=== PATIENT | female | born 2005 | race Caucasian/White ===

== ENCOUNTER 2024-04-26 08:13 | Observation (INO) ==
--- NOTE | 2024-04-26 08:35 | Emergency Department Note ---
History of Present Illness General Chief complaint: Syncope Stated complaint: SYNCOPE, FALL Time Seen by Provider: 04/26/24 08:21 History of Present Illness This is a 19-year-old female who presents to the emergency department via private vehicle with complaints of "syncope, fall". Patient here today with boyfriend. Both patient and boyfriend provide history. Patient notes that she had a sore throat yesterday for much of the day. At evening time yesterday before bed she did take some NyQuil. She then was able to fall asleep. She then woke back up around 5 AM and felt unwell and perhaps thought she had a fever. She then took NyQuil again which is about 6 hours after the first dose. She then was able to fall asleep for little bit and then had to get up to use the bathroom and asked when she notes that she began feeling dizzy and lightheaded. The patient then notes that as she was ambulating and feeling dizzy/lightheaded she then had a syncopal event. This was witnessed by boyfriend. He notes that she did fall to the ground and struck a few pieces of furniture on the way down but no large strikes to the head. Boyfriend then notes he went to her side and made sure that she did not stand back up. She then had 2 more syncopal episodes. During that time she was out for about 15 to 20 seconds. He notes that there was a few jerking movements of the extremities but no full seizure activity. Patient denies biting the tongue or urinary incontinence. The patient notes that she does feel a little out of it at the present time and anxious but overall feels well. Patient denies any chest pain or shortness of breath. No headache. No nausea or vomiting. Home Medications Medication Instructions Recorded Confirmed Type amitriptyline 12.5 mg PO .EVERY COUPLE NIGHTS 04/26/24 04/26/24 History ibuprofen 2 tabs PO .Q6-8H PRN Pain 04/26/24 04/26/24 History Allergies Allergy/AdvReac Type Severity Reaction Status Date / Time Penicillins Allergy Hives Verified 04/26/24 08:21 walnut Allergy Hives Verified 04/26/24 08:21 Past Med/Surg History Problem List (Updated 04/26/24 @ 12:19 by Ricardo Jackson MD, [facility]) Anxiety Migraine Sinus pause (Acute) Syncope and collapse (Acute) Syncope, cardiogenic Social History Smoking Status: Never smoker Hx Alcohol Use: Yes Hx Substance Use: No Preferred Language: Divehi Communication Ability: Effective [employer] Combination Required: No Beliefs That Will Affect Care: None Current Living Situation: Other Current Living Situation Comment: Dormatory Feels Safe at Home: Yes Assistive Devices: None Review of Systems A total of 10 systems reviewed and were otherwise negative Physical Exam Vital Signs Vital Signs - 24 hr 04/26/24 08:18 04/26/24 08:33 04/26/24 08:52 Temperature 36.4 C L Temperature Source Oral Pulse Rate - Lying Pulse Rate - Sitting Pulse Rate - Standing Pulse Rate 109 H 97 H Pulse Rate [Apical] Pulse Rate from SpO2 Sensor Pulse Rhythm Regular Pulse Strength Normal Respiratory Rate 18 Blood Pressure - Lying Blood Pressure - Sitting Blood Pressure- Standing Blood Pressure 103/68 Blood Pressure [Left Arm] Blood Pressure Mean 79 Blood Pressure Mean [Left Arm] Blood Pressure Position Sitting Pulse Oximetry 98 Oxygen Delivery Method Room Air Room Air Sepsis Recent Fever Within 48 Hours No Sepsis New/Unexplained Change in Mental Status No Sepsis Action Taken by Nursing No Action Required 04/26/24 08:52 04/26/24 09:02 04/26/24 09:29 Temperature Temperature Source Pulse Rate - Lying 86 Pulse Rate - Sitting 104 H Pulse Rate - Standing 101 H Pulse Rate Pulse Rate [Apical] 78 Pulse Rate from SpO2 Sensor Pulse Rhythm Pulse Strength Respiratory Rate 14 Blood Pressure - Lying 100/58 L Blood Pressure - Sitting 109/72 Blood Pressure- Standing 79/61 L Blood Pressure Blood Pressure [Left Arm] 98/64 L Blood Pressure Mean Blood Pressure Mean [Left Arm] 75 Blood Pressure Position Pulse Oximetry 98 Oxygen Delivery Method Room Air Room Air Sepsis Recent Fever Within 48 Hours Sepsis New/Unexplained Change in Mental Status Sepsis Action Taken by Nursing 04/26/24 09:31 04/26/24 09:37 04/26/24 09:42 Temperature Temperature Source Pulse Rate - Lying Pulse Rate - Sitting Pulse Rate - Standing Pulse Rate 0 L 78 Pulse Rate [Apical] 78 Pulse Rate from SpO2 Sensor Pulse Rhythm Pulse Strength Respiratory Rate 14 Blood Pressure - Lying Blood Pressure - Sitting Blood Pressure- Standing Blood Pressure Blood Pressure [Left Arm] 106/67 Blood Pressure Mean Blood Pressure Mean [Left Arm] 80 Blood Pressure Position Pulse Oximetry 98 Oxygen Delivery Method Room Air Sepsis Recent Fever Within 48 Hours Sepsis New/Unexplained Change in Mental Status Sepsis Action Taken by Nursing 04/26/24 09:48 04/26/24 10:00 04/26/24 10:03 Temperature Temperature Source Pulse Rate - Lying Pulse Rate - Sitting Pulse Rate - Standing Pulse Rate 78 88 Pulse Rate [Apical] Pulse Rate from SpO2 Sensor 80 88 Pulse Rhythm Pulse Strength Respiratory Rate 19 15 Blood Pressure - Lying Blood Pressure - Sitting Blood Pressure- Standing Blood Pressure 119/72 Blood Pressure [Left Arm] Blood Pressure Mean 82 Blood Pressure Mean [Left Arm] Blood Pressure Position Pulse Oximetry 99 99 Oxygen Delivery Method Room Air Room Air Sepsis Recent Fever Within 48 Hours Sepsis New/Unexplained Change in Mental Status Sepsis Action Taken by Nursing 04/26/24 10:21 04/26/24 10:30 Temperature Temperature Source Pulse Rate - Lying Pulse Rate - Sitting Pulse Rate - Standing Pulse Rate 103 H Pulse Rate [Apical] Pulse Rate from SpO2 Sensor 102 H Pulse Rhythm Pulse Strength Respiratory Rate 13 Blood Pressure - Lying Blood Pressure - Sitting Blood Pressure- Standing Blood Pressure 120/66 Blood Pressure [Left Arm] Blood Pressure Mean 81 Blood Pressure Mean [Left Arm] Blood Pressure Position Pulse Oximetry 99 Oxygen Delivery Method Room Air Sepsis Recent Fever Within 48 Hours Sepsis New/Unexplained Change in Mental Status Sepsis Action Taken by Nursing VITAL SIGNS - Vital signs and nursing notes were reviewed. Stable and afebrile. GENERAL - 19-year-old female appearing her stated age. Communicates well with provider and answers questions appropriately. SKIN - Gross examination of the entire body surface demonstrates no lacerations to the body surface. HEAD - Normocephalic, Atraumatic. No Richards's Sign or Raccoon's Eyes. No depressed skull fractures palpable. EYES - PERRL with EOMI bilaterally. Without subconjunctival hemorrhage. Palpebral conjunctiva pink and moist with no injection. EARS - No deformities of external structures noted on gross examination bilaterally. No hemotympanum present. No tympanic perforation noted. Handle of malleus, umbo, cone of light, pars tensa/flaccid all easily visualized. NOSE - Midline and without cyanosis. No epistaxis or clear watery discharge noted. Septum midline without deviation. No septal hematoma noted. No overlying ecchymosis noted. MOUTH/OROPHARYNX - Without perioral cyanosis. Tongue midline with equal elevation of palate bilaterally. No blood noted in the oropharynx. No tonsillar hypertrophy, erythema, or exudates noted. No dental fractures noted. NECK - No tenderness to palpation over the cervical spinous processes. No cervical paraspinal muscle tenderness noted. LUNGS - Chest wall symmetric without accessory muscle use, intercostals retractions, or central cyanosis. Normal vesicular breath sounds CTA B/L. No wheezes, rales, or rhonchi appreciated. CARDIAC - RRR with S1/S2. No murmur, rubs, or gallops appreciated. ABDOMEN - Abdominal contour normal and without pulsations or visible masses. BS normoactive all four quadrants. No rebound tenderness or guarding noted. Negative Krunal's or Brown Cole's Signs. No tenderness, palpable masses, hepatosplenomegaly, or ascites noted. EXTREMITIES - No gross deformities noted of the extremities. +5/5 strength noted in UE/LE bilaterally. NEUROLOGIC - Cranial nerves II through XII grossly intact. PSYCH -alert, oriented and pleasant on exam. Course Administered Medications Discontinued Medications Acetaminophen (Acetaminophen 325 Mg Tab) 650 mg PO Q4H PRN PRN Reason: pain/fever Stop: 05/26/24 23:43 Last Admin: 04/26/24 23:54 Dose: 650 mg Documented By: MARTIN Atropine Sulfate (Atropine Sulfate 0.1 Mg/Ml 10ml Syr) Confirm Administered Dose 1 mg IV .STK-MED ONE Stop: 04/27/24 03:38 Last Admin: 04/27/24 08:59 Dose: Not Given Documented By: MASSIMO Sodium Chloride (Nss) 1,000 mls @ 500 mls/hr IV .Q2H [facility] Stop: 04/26/24 11:36 Last Infusion: 04/26/24 11:45 Dose: Infused Documented By: Admin: 04/26/24 09:39 Dose: 500 mls/hr Documented By: BING Magnesium Sulfate/Dextrose (Magnesium Sulfate / D5w) 1 gm in 100 mls @ 50 mls/hr IV Q2H [facility] Stop: 04/26/24 15:14 Last Infusion: 04/26/24 17:13 Dose: Infused Documented By: Admin: 04/26/24 13:40 Dose: 50 mls/hr Documented By: Infusion: 04/26/24 13:19 Dose: Infused Documented By: Admin: 04/26/24 11:19 Dose: 50 mls/hr Documented By: BEULAH Potassium Chloride (K Royce / Wtr) 10 meq in 100 mls @ 100 mls/hr IV Q1H [facility] Stop: 04/26/24 13:14 Last Infusion: 04/26/24 13:40 Dose: Infused Documented By: Admin: 04/26/24 12:22 Dose: 100 mls/hr Documented By: Infusion: 04/26/24 12:19 Dose: Infused Documented By: Admin: 04/26/24 11:19 Dose: 100 mls/hr Documented By: BEULAH Miscellaneous (Icu Protocol For Hyperglycemia) 1 each N/A ACHS [facility] Stop: 04/28/24 11:54 Last Admin: 04/27/24 08:59 Dose: Not Given Documented By: Admin: 04/26/24 20:22 Dose: 1 each Documented By: Admin: 04/26/24 17:51 Dose: Not Given Documented By: Admin: 04/26/24 13:12 Dose: Not Given Documented By: COLEEN Potassium Chloride (Potassium Chloride Crtab 20 Meq Tabcr) 40 meq PO NOW STA Stop: 04/26/24 11:01 Last Admin: 04/26/24 11:13 Dose: Not Given Documented By: BEULAH Medical Decision Making Laboratory Data 04/27/24 04:02 04/27/24 04:02 Lab Results 04/26/24 04/26/24 04/26/24 Range/Units 08:37 08:40 08:56 WBC 15.05 H (4.8-10.8) K/ul RBC 4.60 (4.20-5.40) M/uL Hgb 13.8 (12.0-16.0) g/dl Hct 40.4 (37.0-47.0) % MCV 87.8 (80.0-100.0) fL MCH 30.0 (25.0-34.0) pg MCHC 34.2 (32.0-36.0) g/dL RDW Std Deviation 38.8 (36.4-46.3) fL RDW Coeff of Niko 12.1 (11.5-14.5) % Plt Count 290 (130-400) K/uL MPV 9.0 L (9.4-12.4) fL Immature Gran % (Auto) 0.3 % Neut % (Auto) 83.9 % Lymph % (Auto) 11.3 % Lares % (Auto) 4.1 % Eos % (Auto) 0.2 % Baso % (Auto) 0.2 % Neut # (Auto) 12.63 H (1.40-6.50) K/uL Lymph # (Auto) 1.70 (1.20-3.40) K/uL Lares # (Auto) 0.61 H (0.11-0.59) K/uL Eos # (Auto) 0.03 (0.00-0.50) K/uL Baso # (Auto) 0.03 (0.00-0.20) K/uL Immature Gran # (Auto) 0.05 (0.01-0.20) K/uL Sodium 141 (136-145) mmol/L Potassium 3.7 (3.5-5.1) mmol/L Chloride 106 (98-107) mmol/L Carbon Dioxide 25 (21-32) mmol/L Anion Gap 10 (3-11) BUN 15 (6-23) mg/dl Creatinine 0.74 (0.6-1.2) mg/dl Est Cr Clr Drug Dosing Not Reportable eGFR 117.97 BUN/Creatinine Ratio 20.3 H (10-20) Glucose 117 H (70-99(Fasting)) mg/dl Calcium 9.2 (8.6-10.3) mg/dl Phosphorus 3.5 (2.5-4.9) mg/dl Magnesium 1.8 (1.7-2.4) mg/dl Total Bilirubin 0.9 (0.2-1.0) mg/dl AST 15 (13-39) U/L ALT 10 (7-52) U/L Alkaline Phosphatase 71 (34-104) U/L Troponin I High Sens 2.9 (0-14) pg/ml Total Protein 7.4 (6.0-8.3) gm/dl Albumin 4.4 (3.4-5.0) gm/dl Globulin 3.0 (2.5-4.0) gm/dl Albumin/Globulin Ratio 1.5 (0.9-2) TSH 1.594 (0.300-4.500) uIu/ml HCG, Qual Negative (Negative) Ethyl Alcohol mg/dL (<10.0) mg/dl Adenovirus (PCR) Not Detected (NotDetected) B. pertussis DNA (PCR) Not Detected (NotDetected) B.parapertussis DNA PCR Not Detected (NotDetected) Lyme Disease Screen Negative (Negative) C. pneumoniae DNA (PCR) Not Detected (NotDetected) Coronavirus OC43 (PCR) Not Detected (NotDetected) Coronavirus HKU1 (PCR) Not Detected (NotDetected) Coronavirus 229E (PCR) Not Detected (NotDetected) SARS-CoV-2 (PCR) Not Detected (NotDetected) Coronavirus NL63 (PCR) Not Detected (NotDetected) Monoscreen Negative (Negative) Human Metapneumovir PCR Not Detected (NotDetected) Influenza Type A (PCR) Not Detected (NotDetected) Influenza Type B (PCR) Not Detected (NotDetected) M. pneumoniae (PCR) Not Detected (NotDetected) Parainfluenza 1 (PCR) Not Detected (NotDetected) Parainfluenza 2 (PCR) Not Detected (NotDetected) Parainfluenza 3 (PCR) Not Detected (NotDetected) Parainfluenza 4 (PCR) Not Detected (NotDetected) RSV (PCR) Not Detected (NotDetected) Entero/Rhino (PCR) Not Detected (NotDetected) Group A Strep (PCR) NOT DETECTED (NotDetected) 04/26/24 Range/Units 10:37 WBC (4.8-10.8) K/ul RBC (4.20-5.40) M/uL Hgb (12.0-16.0) g/dl Hct (37.0-47.0) % MCV (80.0-100.0) fL MCH (25.0-34.0) pg MCHC (32.0-36.0) g/dL RDW Std Deviation (36.4-46.3) fL RDW Coeff of Niko (11.5-14.5) % Plt Count (130-400) K/uL MPV (9.4-12.4) fL Immature Gran % (Auto) % Neut % (Auto) % Lymph % (Auto) % Lares % (Auto) % Eos % (Auto) % Baso % (Auto) % Neut # (Auto) (1.40-6.50) K/uL Lymph # (Auto) (1.20-3.40) K/uL Lares # (Auto) (0.11-0.59) K/uL Eos # (Auto) (0.00-0.50) K/uL Baso # (Auto) (0.00-0.20) K/uL Immature Gran # (Auto) (0.01-0.20) K/uL Sodium (136-145) mmol/L Potassium (3.5-5.1) mmol/L Chloride (98-107) mmol/L Carbon Dioxide (21-32) mmol/L Anion Gap (3-11) BUN (6-23) mg/dl Creatinine (0.6-1.2) mg/dl Est Cr Clr Drug Dosing eGFR BUN/Creatinine Ratio (10-20) Glucose (70-99(Fasting)) mg/dl Calcium (8.6-10.3) mg/dl Phosphorus (2.5-4.9) mg/dl Magnesium (1.7-2.4) mg/dl Total Bilirubin (0.2-1.0) mg/dl AST (13-39) U/L ALT (7-52) U/L Alkaline Phosphatase (34-104) U/L Troponin I High Sens (0-14) pg/ml Total Protein (6.0-8.3) gm/dl Albumin (3.4-5.0) gm/dl Globulin (2.5-4.0) gm/dl Albumin/Globulin Ratio (0.9-2) TSH (0.300-4.500) uIu/ml HCG, Qual (Negative) Ethyl Alcohol mg/dL < 10.0 (<10.0) mg/dl Adenovirus (PCR) (NotDetected) B. pertussis DNA (PCR) (NotDetected) B.parapertussis DNA PCR (NotDetected) Lyme Disease Screen (Negative) C. pneumoniae DNA (PCR) (NotDetected) Coronavirus OC43 (PCR) (NotDetected) Coronavirus HKU1 (PCR) (NotDetected) Coronavirus 229E (PCR) (NotDetected) SARS-CoV-2 (PCR) (NotDetected) Coronavirus NL63 (PCR) (NotDetected) Monoscreen (Negative) Human Metapneumovir PCR (NotDetected) Influenza Type A (PCR) (NotDetected) Influenza Type B (PCR) (NotDetected) M. pneumoniae (PCR) (NotDetected) Parainfluenza 1 (PCR) (NotDetected) Parainfluenza 2 (PCR) (NotDetected) Parainfluenza 3 (PCR) (NotDetected) Parainfluenza 4 (PCR) (NotDetected) RSV (PCR) (NotDetected) Entero/Rhino (PCR) (NotDetected) Group A Strep (PCR) (NotDetected) Imaging Data Radiologist's Impression: Chest X-Ray 04/26/24 08:41 XR chest 1V portable HISTORY: 19 years-old Female syncope, sore throat acute chest and throat pain COMPARISON: None TECHNIQUE: AP view of the chest FINDINGS: Cardiac silhouette is normal. The lungs appear clear. No pneumothorax or pleural effusion. Bones appear normal. IMPRESSION: Normal exam. ACT 112: Negative or not required by law. The above report was generated using voice recognition software. It may contain grammatical, syntax or spelling errors. Electronically signed by: Tony Leonard M.D. 04/26/2024 8:57 AM MDM Narrative Patient was seen and evaluated as above in room A03. Review was performed of triage nursing notes and vital signs. Patient presents today for assessment of syncopal event x 3 in the setting of recent sore throat and feeling unwell. Patient well-appearing and nontoxic on assessment. IV access was established. No signs of head trauma clinically. Although head CT considered at this time will refrain pending clinical course. Chest x-ray was performed and per my interpretation was negative for acute process. I also reviewed the radiology report which is as above and normal. EKG was performed. This revealed normal sinus rhythm at a rate of [address]pm[address] elevation on this rhythm tracing. Labs were drawn. I did inquire about seizure activity with patient and boyfriend. Although the patient did have a few brief jerking movements while passed out, this seems more like myoclonic movements in the setting of syncope rather than true seizure. She did not bite the tongue. There was no urinary incontinence. No history of seizure. Labs reveal leukocytosis 15.05. No anemia. No emergent metabolic disturbance. Mild hyperglycemia 117. Troponin negative. TSH reveals euthyroid state. hCG negative. Bio fire panel negative. Strep testing negative. Monotest negative. Lyme testing negative. An EKG was performed on arrival here today and this revealed normal sinus rhythm at a rate of 87 bpm. QTc 445. QRS 88. No ST elevation. Orthostatic vital signs were then ordered. I was notified emergently during the orthostatic vital signs that upon standing the patient did have another episode of syncope. Review of the monitor strip does show a several second pause. This does correlate with the patient's syncopal event that occurred here. Repeat EKG was performed at that time and per my interpretation this reveals normal sinus rhythm with sinus arrhythmia at a rate of 67 bpm. QTc 433. QRS 92. No ST elevation. I do believe that further evaluation and management in the inpatient setting is warranted. Case discussed with the hospitalist service as well as cardiology, Dr. Middleton. Please refer to further documentation regarding her stay. Continuous cardiac monitoring and pulse oxygenation was ordered. Case was discussed with the attending physician. GCS: 15 In the evaluation and treatment of this patient the following differential diagnoses were entertained: Vasovagal syncope, dehydration, illness, PE, CVA, TIA, seizure, intracranial hemorrhage, electrolyte disturbance, among others Impression & Plan Syncope and collapse, Sinus pause Discharge Plan Visit Data Chief Complaint: Syncope Stated Complaint: SYNCOPE, FALL ED Provider: Jair Álvarez ED Midlevel Provider: Jameel Andrew Discharge Problem: Syncope and collapse, Sinus pause Patient Disposition: Admitted As Inpatient Condition: Good Discharge Instructions Interventions: ED Discharge Assessment Last Done: 04/26/24 11:38
[2024-04-26 08:56] LABS: Basophils # (auto) 0.03 K/uL (0.00-0.20); Basophils % (auto) 0.2 %; Eosinophils # (auto) 0.03 K/uL (0.00-0.50); Eosinophils % (auto) 0.2 %; Hematocrit (blood only) 40.4 % (37.0-47.0); Hemoglobin 13.8 g/dl (12.0-16.0); Immature Granulocytes # (auto) 0.05 K/uL (0.01-0.20); Immature Granulocytes % (auto) 0.3 %; Lymphocytes % (auto) 11.3 %; Mean Corpuscular Hgb Conc 34.2 g/dL (32.0-36.0); Mean Corpuscular Volume 87.8 fL (80.0-100.0); Monocytes # (auto) 0.61 K/uL (0.11-0.59); Monocytes % (auto) 4.1 %; Neutrophils # (auto) 12.63 K/uL (1.40-6.50); Neutrophils % (auto) 83.9 %; Platelet Count 290 K/uL (130-400); RDW Coefficient of Variation 12.1 % (11.5-14.5); RDW Standard Deviation 38.8 fL (36.4-46.3); White Blood Count 15.05 K/ul (4.8-10.8)
--- NOTE | 2024-04-26 08:58 | XRay Report ---
XR chest 1V portable HISTORY: 19 years-old Female syncope, sore throat acute chest and throat pain COMPARISON: None TECHNIQUE: AP view of the chest FINDINGS: Cardiac silhouette is normal. The lungs appear clear. No pneumothorax or pleural effusion. Bones appe ar normal. IMPRESSION: Normal exam. ACT 112: Negative or not required by law. The above report was generated using voice recognition software. It may contain grammatical, syntax o r spelling errors. Electronically signed by: Tony Leonard M.D. 04/26/2024 8:57 AM
[2024-04-26 09:13] LABS: Monotest Negative (Negative); Pregnancy Test, Serum Negative (Negative)
[2024-04-26 09:20] LABS: Alanine Aminotransferase 10 U/L (7-52); Albumin Globulin Ratio 1.5 (0.9-2); Albumin Level 4.4 gm/dl (3.4-5.0); Alkaline Phosphatase 71 U/L (34-104); Anion Gap 10 (3-11); Aspartate Aminotransferase 15 U/L (13-39); BUN Creatinine Ratio 20.3 (10-20); Bilirubin,Total 0.9 mg/dl (0.2-1.0); Blood Urea Nitrogen 15 mg/dl (6-23); Calcium 9.2 mg/dl (8.6-10.3); Carbon Dioxide 25 mmol/L (21-32); Chloride 106 mmol/L (98-107); Glucose 117 mg/dl (70-99(Fasting)); Magnesium 1.8 mg/dl (1.7-2.4); Potassium 3.7 mmol/L (3.5-5.1); Sodium 141 mmol/L (136-145); Total Protein 7.4 gm/dl (6.0-8.3)
[2024-04-26 09:27] LABS: Troponin I High Sensitivity 2.9 pg/ml (0-14)
[2024-04-26 09:36] LABS: Thyroid Stimulating Hormone 1.594 uIu/ml (0.300-4.500)
[2024-04-26] MEDS: SODIUM CHLORIDE 0.9% 1,000 ML IV SCH (09:39)
[2024-04-26 09:58] LABS: Adenovirus PCR Not Detected (NotDetected); Bordetella parapertussis PCR Not Detected (NotDetected); Bordetella pertussis PCR Not Detected (NotDetected); Chlamydia pneumoniae PCR Not Detected (NotDetected); Coronavirus 229E PCR Not Detected (NotDetected); Coronavirus CoV-2 (COVID19)PCR Not Detected (NotDetected); Coronavirus HKU1 PCR Not Detected (NotDetected); Coronavirus NL63 PCR Not Detected (NotDetected); Coronavirus OC43PCR Not Detected (NotDetected); Human Metapneumovirus PCR Not Detected (NotDetected); Influenza A PCR Not Detected (NotDetected); Influenza B PCR Not Detected (NotDetected); Mycoplasma pneumoniae PCR Not Detected (NotDetected); Parainfluenza Virus 1 PCR Not Detected (NotDetected); Parainfluenza Virus 2 PCR Not Detected (NotDetected); Parainfluenza Virus 3 PCR Not Detected (NotDetected); Parainfluenza Virus 4 PCR Not Detected (NotDetected); Respiratory Syncytial VirusPCR Not Detected (NotDetected); Rhinovirus/Enterovirus PCR Not Detected (NotDetected)
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
--- NOTE | 2024-04-26 10:58 | Critical Care Consultation ---
Date of Consultation April 26, 2024 Assessment & Plan (1) Syncope and collapse: (2) Sinus pause: (3) Migraine: (4) Anxiety: Plan -- Syncopal episodes with sinus pause Differential includes tachy-migel syndrome Continue with pacer pads Atropine at bedside. TSH within normal limit, Lyme disease negative, mono screen negative, group A strep negative 04/26/2024 Beta-hCG negative UDS negative for everything EKG 04/26/2024, 9:23 AM: Normal sinus rhythm, normal axis, incomplete RBBB, no ST-T wave changes appreciated, QTc 433 There are some T wave inversions in lead II which is likely lead misplacement --Leukocytosis Likely reactive Chest x-ray does not show any lung infiltrate UA showing trace leukocyte esterase --History of anxiety/migraine On amitriptyline --Prophylaxis VTE: IPC GI: None Lines: Peripheral Diet: Regular Plan: Potassium and magnesium being replaced. Will try to keep potassium greater than 4, magnesium greater than 2 and phosphorus greater than 3 Follow-up UDS Continue with telemonitoring Follow-up cardiology consult Bedrest for at least 4-6 hours. If no episodes then okay to get out of the bed to chair but only with nurse around Please note the above document was generated using voice recognition software. It may contain grammatical, syntax or spelling errors.Any formal questions or concerns about the content, text or information contained within the body of this dictation should be directly addressed to the provider for clarification. History of Present Illness History of Present Illness 19-year-old female comes to the ER because of multiple syncopal episodes Past medical history: Anxiety, migraine on amitriptyline 4.5-second pause documented in the ER At the time of examination in the ICU. Patient was not in any distress Her heart rate was in the low 100s. Systolic blood pressure 110 with MAP in the 75 She denied any chest pain, no dizziness, no nausea or vomiting She does have chronic blurry vision since she was a child. Whole day yesterday she ate a burger around noon followed by milkshake around 6 PM and lemonade prior to going to sleep around 9 PM. As per the patient she does this frequently. Did not feel that she was dehydrated. She woke up in the middle of the night to go to the washroom where she felt that she is about to pass out and she did pass out approximately 3 times Denies any need to strain while urinating. Denied any palpitations, no nausea prior to that. Did not hit her head. Had an episode of syncope when she was in the eighth grade once. Did not seek medical attention at that time She did complain of some sore throat which has been going on since yesterday. Denies any phlegm No nasal congestion No fever or chills No night sweats, no unintentional weight loss Her menstrual cycle is regular, she is at the end of her menstrual cycle right now. Denies any tick bites, no rashes that she is aware of. Social history: Lifetime non-smoker No history of asthma Allergies Allergy/AdvReac Type Severity Reaction Status Date / Time Penicillins Allergy Hives Verified 04/26/24 08:21 walnut Allergy Hives Verified 04/26/24 08:21 Home Medications Medication Instructions Recorded Confirmed Type NyQuil 1 dose PO DIRECTED PRN cold/flu 04/26/24 04/26/24 History amitriptyline 12.5 mg PO .EVERY COUPLE NIGHTS 04/26/24 04/26/24 History ibuprofen 2 tabs PO .Q6-8H PRN Pain 04/26/24 04/26/24 History Patient History Social History Smoking Status: Never smoker Hx Alcohol Use: Yes Hx Substance Use: No Preferred Language: Wolof [employer] Glass Blower Required: No Beliefs That Will Affect Care: None Current Living Situation: Other Current Living Situation Comment: Dormatory Feels Safe at Home: Yes Assistive Devices: Glasses Review of Systems 2 Review of Systems: All systems reviewed & are unremarkable except as noted in HPI & below Physical Exam 2 Physical Exam: Constitutional: No acute distress HEENT: EOMI, PERRLA Respiratory system: Good air entry bilaterally, no wheeze, no rhonchi, no crackles CVS: S1-S2 positive, no murmurs or gallops, tachycardia Abdomen: Soft, nontender, nondistended, positive bowel sounds x4 Extremities: +2 pulses bilaterally radialis/ dorsalis pedis, no cyanosis, no edema Neuro: Awake alert oriented x3 Psych: Normal mood and affect G/U: No [place] Skin: no rashes, warm and dry Lymphatic: no cervical or axillary lymphadenopathy Results & Data Results & Data Vital Signs (Past 12 Hours) Vital Signs Temp Pulse Pulse Resp BP BP Pulse Ox 04/26/24 10:30 120/66 04/26/24 10:21 103 H 13 99 04/26/24 10:03 88 15 99 04/26/24 10:00 119/72 04/26/24 09:48 78 19 99 04/26/24 09:42 78 04/26/24 09:37 78 14 106/67 98 04/26/24 09:31 0 L 04/26/24 09:02 78 14 98/64 L 98 04/26/24 08:52 04/26/24 08:52 04/26/24 08:33 97 H 04/26/24 08:18 36.4 C L 109 H 18 103/68 98 O2 Del Method 04/26/24 10:30 04/26/24 10:21 Room Air 04/26/24 10:03 Room Air 04/26/24 10:00 04/26/24 09:48 Room Air 04/26/24 09:42 04/26/24 09:37 Room Air 04/26/24 09:31 04/26/24 09:02 Room Air 04/26/24 08:52 Room Air 04/26/24 08:52 Room Air 04/26/24 08:33 04/26/24 08:18 Room Air Laboratory Results 04/26/24 08:40 04/26/24 08:40 [place] [address] IN/OBS CONSULT LVL 4,60M Patient Type New Diagnoses Syncope and collapse R55 Sinus pause I45.5 Migraine G43.909 Anxiety F41.9
[2024-04-26] MEDS: POTASSIUM CHLORIDE CRTAB 20 MEQ TABCR PO STA (11:13)
[2024-04-26] MEDS ORDERED: MAGNESIUM SULFATE / D5W 1 GM/100 ML BAG IV SCH (11:15)
[2024-04-26] MEDS: POTASSIUM CHLORIDE / WTR 10 MEQ/100 ML PLCT IV SCH (11:19)
[2024-04-26] MEDS: MAGNESIUM SULFATE / D5W 1 GM/100 ML BAG IV SCH (11:19)
--- NOTE | 2024-04-26 11:19 | XCELERA ---
[id number]
[2024-04-26 11:21] LABS: Phosphorus 3.5 mg/dl (2.5-4.9)
--- NOTE | 2024-04-26 11:31 | Cardiology Consultation ---
Date of Consultation April 26, 2024 Assessment & Plan (1) Syncope and collapse: -4 episodes of witnessed syncope today. -Review of the monitor strips suggest a vasovagal etiology (sinus tachycardia to sinus bradycardia to a 6-second pause). -Patient does not recall any premorbid symptoms but was aware of each impending event. -Her echocardiogram is normal. -Will ask Dr. Duarte to review her case tomorrow. History of Present Illness History of Present Illness Miss Leach is a 19-year-old female admitted earlier today after several episodes of syncope. This consultation was ordered to assist in her cardiac management. The patient was in her usual state of health until several days prior to presentation. She developed a mild cold and has been using NyQuil to sleep. Yesterday, in celebration of her 19st birthday, the patient had 1 alcoholic beverage just before the App[employer]. She went to bed at approximately 12 midnight. She awoke once during the night to use the bathroom without event. At approximately 8 AM, the patient got up to use the bathroom again and was walking with her boyfriend. She began to note significant dizziness and felt as if she was going to "pass out." She sat down on the portable refrigerator and then had a syncopal event witnessed by her boyfriend. She does not recall if she had premorbid nausea or diaphoresis. She awoke quickly and had no post morbid complaints. Approximately 2 minutes later, while lying on the floor, the patient said "it is going to happen again" and she had another witnessed episode of loss of consciousness. Approximately 2 minutes later, while seated on the floor against a wall, the patient again said "it is going to happen again." She was helped to the supine position by her boyfriend and experienced a third episode of syncope. The patient presented to the emergency room for an evaluation. While the nurse was performing orthostatics, the patient suffered a fourth episode of syncope. Review of the monitor strip notes that she was in a sinus tachycardia followed by an abrupt sinus bradycardia and then a 6-second pause. This corresponded with her syncopal event. She has only experienced 1 other episode of syncope in her lifetime. This occurred while she was in the eighth grade. She was seated at the kitchen table and began to note dizziness and felt that she was going to "pass out." She was carried to the couch by her father and apparently had a syncopal event. The patient has been healthy her entire lifetime. She has never experienced exertional chest pain or dyspnea. She further denies PND, orthopnea, palpitations, lower extremity edema, and claudication. Currently, the patient is resting comfortably in bed and without complaints. Her boyfriend is at the bedside. Past medical and surgical history 1. Migraine headaches Social history Isauro at [employer] studying [employer] from [place], [place] No tobacco 1 alcoholic beverage her entire lifetime Family history Mother is 50 and healthy Father is 49 with hypercholesterolemia Siblings are all alive and well Review of systems A 10 point review of systems was undertaken and negative except for that de scribed above. Allergies Allergy/AdvReac Type Severity Reaction Status Date / Time Penicillins Allergy Hives Verified 04/26/24 08:21 walnut Allergy Hives Verified 04/26/24 08:21 Home Medications Medication Instructions Recorded Confirmed Type NyQuil 1 dose PO DIRECTED PRN cold/flu 04/26/24 04/26/24 History amitriptyline 12.5 mg PO .EVERY COUPLE NIGHTS 04/26/24 04/26/24 History ibuprofen 2 tabs PO .Q6-8H PRN Pain 04/26/24 04/26/24 History Patient History Social History Smoking Status: Never smoker Feels Safe at Home: Yes Physical Exam Physical Exam: In general this is a well-developed well-nourished white female in no acute distress. HEENT exam is negative. Neck reveals normal carotid upstrokes without bruits. Jugular venous pressure is flat at 90. There is no thyromegaly. Cardiovascular exam reveals a regular rhythm with a normal S1 and a physiologically split S2. No S3, S4, or murmurs are noted. Lungs are clear without rales, rhonchi, or wheezes. Abdomen is soft without bruits. Extremities reveal intact radial artery and posterior tibial pulses bilaterally. There is no peripheral edema. Results & Data Vital Signs (Past 12 Hours) Vital Signs Temp Pulse Pulse Resp BP BP Pulse Ox 04/26/24 11:00 99 H 18 119/73 98 04/26/24 10:30 120/66 04/26/24 10:21 103 H 13 99 04/26/24 10:03 88 15 99 04/26/24 10:00 119/72 04/26/24 09:48 78 19 99 04/26/24 09:42 78 04/26/24 09:37 78 14 106/67 98 04/26/24 09:31 0 L 04/26/24 09:02 78 14 98/64 L 98 04/26/24 08:52 04/26/24 08:52 04/26/24 08:33 97 H 04/26/24 08:18 36.4 C L 109 H 18 103/68 98 O2 Del Method 04/26/24 11:00 Room Air 04/26/24 10:30 04/26/24 10:21 Room Air 04/26/24 10:03 Room Air 04/26/24 10:00 04/26/24 09:48 Room Air 04/26/24 09:42 04/26/24 09:37 Room Air 04/26/24 09:31 04/26/24 09:02 Room Air 04/26/24 08:52 Room Air 04/26/24 08:52 Room Air 04/26/24 08:33 04/26/24 08:18 Room Air Laboratory Results CBC, comprehensive metabolic profile, high-sensitivity troponin, and TSH are all normal. test is negative. Ethyl alcohol is undetectable. Lyme titers are negative. Bio fire is negative. Diagnostic Findings Echocardiogram notes normal left ventricular systolic function with an ejection fraction of 60 to 65%. There is no valvular pathology. EKG notes normal sinus rhythm and a right-sided conduction delay. telemetry monitor as described above. Chest x-ray is normal. PG Care Time/CCT Total # of Minutes Spent Total Time Spent with Patient: Total time spent is greater than 50% in coordination of care (as documented) at patient's floor/unit and/or counseling patient: Coding Level of Care Code 42461 IN/OBS CONSULT LVL 4,60M Diagnoses Syncope and collapse R55
[2024-04-26 12:01] LABS: Appearance Urine Clear (Clear); Bacteria Urine Automated 2+ (None Seen); Bilirubin Urine Negative (Negative); Blood Urine 2+ (Negative); Cast Urine Automated 0-2 /lpf (0-2); Color Urine Yellow; Glucose Urine UA Negative (Negative); Ketones Urine 3+ (Negative); Leukocyte Esterase Urine Trace (Negative); Nitrite Urine Negative (Negative); Protein Urine Negative (Negative); RBC Urine Automated 0-2 /hpf (0-2); Specific Gravity Urine 1.032 (1.000-1.030); Urobilinogen Urine Negative (Negative); WBC Urine Automated 0-5 /hpf (0-5); pH Urine 5.5 (4.5-7.5)
[2024-04-26 12:21] LABS: Amphetamines+Metham, Urine Neg (Neg); Barbiturates, Urine Neg (Neg); Benzodiazepine, Urine Neg (Neg); Cocaine, Urine Neg (Neg); Fentanyl, Urine Neg (Neg); MDMA (Ecstacy), Urine Neg (Neg); Marijuana, Urine Neg (Neg); Methadone, Urine Neg (Neg); Opiate, Urine Neg (Neg); Phencyclidine, Urine Neg (Neg)
--- NOTE | 2024-04-26 12:37 | Electrocardiogram Report ---
Test Reason : Blood Pressure : */* mmHG Vent. Rate : 67 BPM Atrial Rate : 67 BPM P-R Int : 154 ms QRS Dur : 92 ms QT Int : 410 ms P-R-T Axes : 56 75 49 degrees QTcB Int : 433 ms Normal sinus rhythm with sinus arrhythmia RSR' or QR pattern in V1 suggests right ventricular conduction delay Nonspecific T wave abnormality Abnormal ECG When compared with ECG of 26-Apr-2024 08:26, (unconfirmed) No significant change was found Confirmed by Jair Middleton ([id number]) on 04/26/2024 12:37:21 PM Referred By: REFERRED SELF Confirmed By: Jair Middleton
[2024-04-26] MEDS: ICU Protocol for HYPERglycemia SCH (13:12)
[2024-04-26] MEDS ORDERED: COUGH DROP (SUGAR FREE) LOZ 24 LOZ/1 BOX BUCCAL PRN (23:44)
[2024-04-26] MEDS: ACETAMINOPHEN 325 MG TAB PO PRN (23:54)
[2024-04-27 04:33] LABS: Basophils # (auto) 0.02 K/uL (0.00-0.20); Basophils % (auto) 0.1 %; Eosinophils # (auto) 0.02 K/uL (0.00-0.50); Eosinophils % (auto) 0.1 %; Hematocrit (blood only) 36.3 % (37.0-47.0); Hemoglobin 12.4 g/dl (12.0-16.0); Immature Granulocytes # (auto) 0.06 K/uL (0.01-0.20); Immature Granulocytes % (auto) 0.4 %; Lymphocytes # (auto) 1.99 K/uL (1.20-3.40); Lymphocytes % (auto) 12.1 %; Mean Corpuscular Hemoglobin 29.7 pg (25.0-34.0); Mean Corpuscular Hgb Conc 34.2 g/dL (32.0-36.0); Mean Corpuscular Volume 86.8 fL (80.0-100.0); Mean Platelet Volume 8.9 fL (9.4-12.4); Monocytes # (auto) 0.94 K/uL (0.11-0.59); Monocytes % (auto) 5.7 %; Neutrophils # (auto) 13.44 K/uL (1.40-6.50); Neutrophils % (auto) 81.6 %; Platelet Count 278 K/uL (130-400); RDW Standard Deviation 38.7 fL (36.4-46.3); Red Blood Count 4.18 M/uL (4.20-5.40); White Blood Count 16.47 K/ul (4.8-10.8)
[2024-04-27 04:43] LABS: BUN Creatinine Ratio 12.7 (10-20); Calcium 8.5 mg/dl (8.6-10.3); Creatinine Clr Calc Pharmacy 137.4 ml/min; Potassium 3.6 mmol/L (3.5-5.1)
--- NOTE | 2024-04-27 06:52 | Hospitalist Progress Note ---
Date of Service April 27, 2024 Assessment & Plan (1) Syncope and collapse: Plan: Patient had one episode of fever overnight-given tylenol which resolved fever. No new episodes of syncope since the ED. Patient is improving with IV hydration. Consider dehydration in the context of viral pharyngitis. Consider medication effects dextromethorphan, tricyclic antidepressant. Given history of lightheadedness, near syncope, consider workup for orthostatic hypotension. Continuous telemetry Repeat EKG Repeat orthostatic BP assessment Downgrade from ICU Refer cardiology, electrophysiology for EP study, assessment Avoid ETOH intake, amitriptyline, NyQuil, Tylenol, decongestant use until workup complete. (2) Sinus pause: Plan: No repeat events overnight. No palpitation, CP. Patient ambulating to and from bathroom in room. Continue cardiac monitoring on telemetry floor Refer cardiology, electrophysiology for EP study, assessment Avoid ETOH intake, amitriptyline, NyQuil, Tylenol, decongestant use until workup complete. (3) Migraine: Plan: Hold amitriptyline until patient recovers from illness. (4) Anxiety: Plan: Controlled. Plan -- Syncopal episodes with sinus pause Differential includes tachy-migel syndrome Continue with pacer pads Atropine at bedside. TSH within normal limit, Lyme disease negative, mono screen negative, group A strep negative 04/26/2024 Beta-hCG negative UDS negative for everything EKG 04/26/2024, 9:23 AM: Normal sinus rhythm, normal axis, incomplete RBBB, no ST-T wave changes appreciated, QTc 433 There are some T wave inversions in lead II which is likely lead misplacement --Leukocytosis Likely reactive Chest x-ray does not show any lung infiltrate UA showing trace leukocyte esterase --History of anxiety/migraine On amitriptyline --Prophylaxis VTE: IPC GI: None Lines: Peripheral Diet: Regular Plan: Potassium and magnesium being replaced. Will try to keep potassium greater than 4, magnesium greater than 2 and phosphorus greater than 3 Follow-up UDS Continue with telemonitoring Follow-up cardiology consult Bedrest for at least 4-6 hours. If no episodes then okay to get out of the bed to chair but only with nurse around Please note the above document was generated using voice recognition software. It may contain grammatical, syntax or spelling errors.Any formal questions or concerns about the content, text or information contained within the body of this dictation should be directly addressed to the provider for clarification. Admission and Anticipated Discharge Date Admission Date: April 26, 2024 Maya Francis is a 19F with a hx of anxiety, migraine presenting with 4 episodes of syncope in the context of viral pharyngitis, dehydration. Penny reports feeling well on Saturday morning. She went to a sports bar on Saturday afternoon where she had her first alcoholic drink. She endorses 1 standard drink. She came home with her boyfriend and started feeling febrile and a sore throat. She took 2 pills of NyQuil and went to sleep around 8 pm. She woke up once during the night still feeling unwell and took another 2 pills around 5 am (total 4). She often uses NyQuil when sick, most recently in the spring. She endorses 1 dose of ibuprofen earlier in the day. Takes amitriptyline 12.5 mg (tricyclic antidepressant) every 3 days for migraine management. Due for it Saturday night but did not take due to feeling unwell. She denies any Tylenol use or other medication or drug use. Penny's boyfriend awoke her to take him to the bathroom (visitor in dorm building so needed to be escorted) and she stood up to put her shoes on. She started walking toward the door and started feeling lightheaded and fell to the ground. Boyfriend reports muscle twitching and horizontal eye movements. She lost consciousness for a few seconds. She came to and her boyfriend assisted her to sit up. She has some amnesia to the events that followed. He reports that she stated "its going to happen again" and then lost consciousness a second time within 2 minutes. This happened a total of 3 times at home. Her boyfriend began to carry her to the car, and then she was able to walk and put herself into the car. Upon reporting to the ED, she reports an "out of body experience". She is unsure if this is due to her anxiety. When asked about visual/auditory hallucinations, she reports that she felt like she was hearing more voices and seeing more people than were actually in the room. This has since resolved. She was assessed for orthostatic hypotension and had another syncopal episode when trying to stand up. This was correlated with a brief 4.5 second sinus pause. She had significant BP drop (109/72 -> 79/61) upon standing. She reports feeling a wave of lightheadedness and seeing dark spots in her visual sosa, which caused her to close her eyes. She denies CP, palpitations at this time. Penny also reports menstruating this week starting Saturday. She states that her cycles are regular and last 5-6 days. She reports moderate bleeding, necessitating pad change 2x daily. She does not take any form of control. Penny reports that she often feels lightheaded, especially when sick. She had one syncopal episode when she was 11 years old. She was ill at the time and stood up from the couch in the morning before losing consciousness for a few seconds. Her mother caught her and put her back onto the couch. She was given apple juice and recovered without hospital follow up. Today, Penny is able to ambulate in her room with assistance of the nurses. She states that she walks alone, but calls for assistance as she was feeling shaky and unstable. Family Hx Dad-HTN, HLD Paternal grandfather-hx [place] Maternal fzhxj-afvzruuhkjg-lerjile arrest No fam hx of POTS Mother is in route. Review of Systems Constitutional: Denies chills, fever. Denies recent sick contacts, but reports living in dorm on campus where students are always ill. Denies recent travel. Eyes: Endorses seeing dark spots prior to syncopal episodes. Denies current changes in vision, blurry vision. Ear, Nose, Mouth, Throat: Endorses sore throat, cough which started last night. No dysphagia Respiratory: Endorses new onset cough today. Endorses sternal CP with deep inspiration. Improved overnight. Denies SOB, dyspnea. Cardiovascular: Additional Comments: Infrequent episodes of palpitations. Reports this is her baseline when she feels anxious. Gastrointestinal: Denies abd pain, nausea, vomiting. Normally has BM few times per day, none so far. Genitourinary: No hematuria, dysuria. Musculoskeletal: Denies muscle weakness. Integumentary: Denies rash, skin changes. Neurologic: Endorses improved cognition. Feels aware of situation and alert. Psychiatric: Denies anxiety, depression Physical Exam Constitutional: Patient is alert and oriented x4. In no acute distress. Eyes: EOMI. PERRLA. ENMT: Palpable cervical lymph nodes bilaterally. No erythema or exudate in the oral or nasal cavities. Ears not assessed-no tip in room. Respiratory: Dry cough in room. Lungs clear to auscultation bilaterally. No wheezing, rales or rhonchi. No conversationall dyspnea Cardiovascular: Irregular, variable HR. Regular rhythm. Normal S1, S2 heart sounds. No murmurs rubs or gallops. Peripheral pulses +2 in upper and lower extremities. Capillary refill <2 sec bilaterally. No cyanosis or clubbing in extremities. Chest (Breasts): Additional Comments: No chest wall deformities. Gastrointestinal (Abdomen): Normal bowel sounds. No abd tenderness or hepatosplenomegaly. Musculoskeletal: No spinous or paraspinal tenderness. Strength 5/5 in all extremities. Normal ROM neck, shoulders, hips bilaterally. Skin: Warm, dry. No rashes or lesions. Neurologic: Cranial nerves II-XII normal. Normal strength, coordination. Normal speech and cognition. Gait not assessed. Psychiatric: Patient has appropriate mood and affect. Results & Data Results & Data Vital Signs (Past 12 Hours) Vital Signs Temp Pulse Resp BP Pulse Ox 04/27/24 06:30 80 16 95 04/27/24 06:18 79 15 94 04/27/24 06:00 112/66 04/27/24 05:45 76 15 94 04/27/24 05:33 78 15 94 04/27/24 05:00 107/70 04/27/24 05:00 71 18 95 04/27/24 04:30 89 16 95 04/27/24 04:05 37.1 C 04/27/24 04:00 80 16 95 04/27/24 04:00 115/63 04/27/24 03:54 88 17 95 04/27/24 03:12 82 17 119/56 L 95 04/27/24 02:30 86 17 94 04/27/24 02:21 89 15 126/61 94 04/27/24 01:30 94 H 19 93 04/27/24 01:03 93 H 17 93 04/27/24 01:00 111/63 04/27/24 00:54 93 H 18 94 04/27/24 00:45 97 H 20 94 04/27/24 00:00 127/81 04/27/24 00:00 101 H 14 99 04/26/24 23:47 38.1 C H 04/26/24 23:33 113 H 16 04/26/24 23:22 98 H 04/26/24 23:00 110 H 18 95 04/26/24 23:00 121/70 04/26/24 23:00 121/70 04/26/24 23:00 121/70 04/26/24 22:45 98 H 19 95 04/26/24 22:09 108 H 28 H 121/70 93 04/26/24 21:30 103 H 14 98 04/26/24 21:06 99 H 14 98 04/26/24 21:00 105/62 04/26/24 21:00 105/62 04/26/24 20:42 36.7 C 04/26/24 20:24 98 H 19 98 04/26/24 20:09 95 H 18 98 04/26/24 20:04 94 H 04/26/24 19:30 103 H 21 98 04/26/24 19:03 94 H 19 98 04/26/24 19:00 118/70 04/26/24 19:00 118/70 04/26/24 18:57 95 H 16 99 Diagnostic Findings Labs WBC 15.05 H Neutrophils 12.68 H BUN 20.3 H Glucose 117 H TSH 1.594 WNL Trop 1hr 2.9, 3hr 2.5 WNL No electrolyte abnormalities Negative for ETOH, , lyme, mono, viral panel Imaging CXR-no aculte infiltrative process, normal cardiac silhouette EKG-Sinus rhythm, possible arrhythmia? HR 67, possible prolonged QT on admission (410/433) Echo-no abnormal findings
--- NOTE | 2024-04-27 07:34 | Critical Care Progress Note ---
Date of Service April 27, 2024 Assessment & Plan (1) Syncope and collapse: (2) Sinus pause: (3) Migraine: (4) Anxiety: Plan Impression: 19-year-old female with syncopal episodes and sinus pauses in the ER admitted to the ICU for observation. She not had any issues overnight and remains hemodynamically stable. Workup unrevealing at this point in time. Recommendations: 1. Syncope with bradycardia: Unclear if related or not. Regardless the patient has been observed in the ICU overnight without any recurrence of her syncopal events, palpitations, or bradycardia. Okay to transfer out of the ICU to telemetry. Formal electrophysiology evaluation is pending. 2. Leukocytosis: Unclear etiology. No evidence of infectious etiology currently so holding antibiotics. 3. Patient's critical care issues are resolved. She can be transferred out of the ICU to the telemetry floor. Critical care services will sign off. Feel free to contact us with questions or concerns Admission and Anticipated Discharge Date Admission Date: April 26, 2024 Subjective Patient seen and examined. EMR reviewed. Discussed with outgoing operations clerk as well as with bedside critical care nurse and on multidisciplinary rounds. The patient has no complaints this morning. She has not had any recurrent issues with syncope or palpitations. She has been ambulatory. She has not had any episodes of low heart rate while in the ICU. She is awake eating breakfast this morning without any complaints Review of Systems Review of Systems: All systems reviewed & are unremarkable except as noted in Subjective Physical Exam Constitutional: WD/WN, vitals as above Neck: trachea midline, no thyromegaly Respiratory: normal respiratory effort, lungs clear to auscultation Cardiovascular: RRR, no murmur, no edema Gastrointestinal (Abdomen): normal bowel sounds, soft, nontender, no hepato splenomegaly Musculoskeletal: Extremities: extremities normal to inspection Skin: no rashes, warm and dry Neurologic: Nonfocal exam Lymphatic: no cervical lymphadenopathy Results & Data Results & Data Vital Signs (Past 12 Hours) Vital Signs Temp Pulse Resp BP Pulse Ox 04/27/24 06:30 80 16 95 04/27/24 06:18 79 15 94 04/27/24 06:00 112/66 04/27/24 05:45 76 15 94 04/27/24 05:33 78 15 94 04/27/24 05:00 107/70 04/27/24 05:00 71 18 95 04/27/24 04:30 89 16 95 04/27/24 04:05 37.1 C 04/27/24 04:00 80 16 95 04/27/24 04:00 115/63 04/27/24 03:54 88 17 95 04/27/24 03:12 82 17 119/56 L 95 04/27/24 02:30 86 17 94 04/27/24 02:21 89 15 126/61 94 04/27/24 01:30 94 H 19 93 04/27/24 01:03 93 H 17 93 04/27/24 01:00 111/63 04/27/24 00:54 93 H 18 94 04/27/24 00:45 97 H 20 94 04/27/24 00:00 127/81 04/27/24 00:00 101 H 14 99 04/26/24 23:47 38.1 C H 04/26/24 23:33 113 H 16 04/26/24 23:22 98 H 04/26/24 23:00 110 H 18 95 04/26/24 23:00 121/70 04/26/24 23:00 121/70 04/26/24 23:00 121/70 04/26/24 22:45 98 H 19 95 04/26/24 22:09 108 H 28 H 121/70 93 04/26/24 21:30 103 H 14 98 04/26/24 21:06 99 H 14 98 04/26/24 21:00 105/62 04/26/24 21:00 105/62 04/26/24 20:42 36.7 C 04/26/24 20:24 98 H 19 98 04/26/24 20:09 95 H 18 98 04/26/24 20:04 94 H Critical Care Results & Data Vital Signs (Past 12 Hours) Vital Signs Temp Pulse Resp BP Pulse Ox 04/27/24 06:30 80 16 95 04/27/24 06:18 79 15 94 04/27/24 06:00 112/66 04/27/24 05:45 76 15 94 04/27/24 05:33 78 15 94 04/27/24 05:00 107/70 04/27/24 05:00 71 18 95 04/27/24 04:30 89 16 95 04/27/24 04:05 37.1 C 04/27/24 04:00 80 16 95 04/27/24 04:00 115/63 04/27/24 03:54 88 17 95 04/27/24 03:12 82 17 119/56 L 95 04/27/24 02:30 86 17 94 04/27/24 02:21 89 15 126/61 94 04/27/24 01:30 94 H 19 93 04/27/24 01:03 93 H 17 93 04/27/24 01:00 111/63 04/27/24 00:54 93 H 18 94 04/27/24 00:45 97 H 20 94 04/27/24 00:00 127/81 04/27/24 00:00 101 H 14 99 04/26/24 23:47 38.1 C H 04/26/24 23:33 113 H 16 04/26/24 23:22 98 H 04/26/24 23:00 110 H 18 95 04/26/24 23:00 121/70 04/26/24 23:00 121/70 04/26/24 23:00 121/70 04/26/24 22:45 98 H 19 95 04/26/24 22:09 108 H 28 H 121/70 93 04/26/24 21:30 103 H 14 98 04/26/24 21:06 99 H 14 98 04/26/24 21:00 105/62 04/26/24 21:00 105/62 04/26/24 20:42 36.7 C 04/26/24 20:24 98 H 19 98 04/26/24 20:09 95 H 18 98 04/26/24 20:04 94 H Lab & Micro Results (Past 24 Hours) RBC 4.18 M/uL (4.20-5.40) L 04/27/24 WBC 16.47 K/ul (4.8-10.8) H 04/27/24 Hgb 12.4 g/dl (12.0-16.0) 04/27/24 Hct 36.3 % (37.0-47.0) L 04/27/24 MCV 86.8 fL (80.0-100.0) 04/27/24 MCH 29.7 pg (25.0-34.0) 04/27/24 MCHC 34.2 g/dL (32.0-36.0) 04/27/24 RDW Standard Deviation 38.7 fL (36.4-46.3) 04/27/24 RDW Coefficient of Variation 12.0 % (11.5-14.5) 04/27/24 Plt Count 278 K/uL (130-400) 04/27/24 MPV 8.9 fL (9.4-12.4) L 04/27/24 Neutrophils (%) (Auto) 81.6 % 04/27/24 Lymphocytes (%) (Auto) 12.1 % 04/27/24 Monocytes # (Auto) 0.94 K/uL (0.11-0.59) H 04/27/24 Eosinophils # (Auto) 0.02 K/uL (0.00-0.50) 04/27/24 Immature Granulocyte % (Auto) 0.4 % 04/27/24 Neutrophils # (Auto) 13.44 K/uL (1.40-6.50) H 04/27/24 Lymphocytes # (Auto) 1.99 K/uL (1.20-3.40) 04/27/24 Monocytes # (Auto) 0.94 K/uL (0.11-0.59) H 04/27/24 Eosinophils # (Auto) 0.02 K/uL (0.00-0.50) 04/27/24 Basophils # (Auto) 0.02 K/uL (0.00-0.20) 04/27/24 Immature Granulocyte # (Auto) 0.06 K/uL (0.01-0.20) 4 Na 138 mmol/L (136-145) 04/27/24 K 3.6 mmol/L (3.5-5.1) 04/27/24 Cl 107 mmol/L (98-107) 04/27/24 CO2 24 mmol/L (21-32) 04/27/24 Anion Gap 7 (3-11) 04/27/24 BUN 7 mg/dl (6-23) 04/27/24 Creatinine 0.55 mg/dl (0.6-1.2) L 04/27/24 BUN/Creatinine Ratio 12.7 (10-20) 04/27/24 Glu 103 mg/dl (70-99(Fasting)) H 04/27/24 Ca 8.5 mg/dl (8.6-10.3) L 04/27/24 Phosphorus Level 3.5 mg/dl (2.5-4.9) 04/26/24 Total Bilirubin 0.9 mg/dl (0.2-1.0) 04/26/24 AST 15 U/L (13-39) 04/26/24 ALT 10 U/L (7-52) 04/26/24 Alkaline Phosphatase 71 U/L (34-104) 04/26/24 TP 7.4 gm/dl (6.0-8.3) 04/26/24 Albumin 4.4 gm/dl (3.4-5.0) 04/26/24 Globulin 3.0 gm/dl (2.5-4.0) 04/26/24 Albumin/Globulin Ratio 1.5 (0.9-2) 04/26/24 Mg 2.0 mg/dl (1.7-2.4) 04/27/24 04:02 Calcium Level 8.5 mg/dl (8.6-10.3) L 04/27/24 04:02 Diagnostic Findings (Past 24 Hours) Chest X-Ray 04/26/24 08:41 XR chest 1V portable HISTORY: 19 years-old Female syncope, sore throat acute chest and throat pain COMPARISON: None TECHNIQUE: AP view of the chest FINDINGS: Cardiac silhouette is normal. The lungs appear clear. No pneumothorax or pleural effusion. Bones appear normal. IMPRESSION: Normal exam. ACT 112: Negative or not required by law. The above report was generated using voice recognition software. It may contain grammatical, syntax or spelling errors. Electronically signed by: Tony Leonard M.D. 04/26/2024 8:57 AM I & O Totals 24 Hours 04/26/24 04/27/24 04/28/24 06:59 06:59 06:59 Intake Total 1640 / 1640 Output Total 600 / 600 Balance 1040 / 1040 Cumulative 04/26/24 08:13 thru 04/27/24 06:17 Intake Total 1640 Output Total 600 Balance 1040 RT Ventilator Mngmt (Last Documented) Ventilator Ordered Settings Respiratory Rate 16 04/27/24 06:30 Ventilator - PT Measurements Respiratory Rate 16 Coding Level of Care Code 81753 SUB INP/OBS CARE 2/35MIN Diagnoses Syncope and collapse R55 Sinus pause I45.5 Migraine G43.909 Anxiety F41.9
[2024-04-27] MEDS: ATROPINE SULFATE 0.1 MG/ML 10ML SYR IV ONE (08:59)
--- NOTE | 2024-04-27 12:10 | Electrocardiogram Report ---
Test Reason : Blood Pressure : */* mmHG Vent. Rate : 87 BPM Atrial Rate : 87 BPM P-R Int : 154 ms QRS Dur : 88 ms QT Int : 370 ms P-R-T Axes : 66 82 56 degrees QTcB Int : 445 ms Normal sinus rhythm Diffuse Minor Nonspecific T wave abnormality Abnormal ECG No previous ECGs available Confirmed by Pratik Bolaños ([id number]) on 04/27/2024 12:09:59 PM Referred By: REFERRED SELF Confirmed By: Pratik Bolaños
[2024-04-27 12:47] VITALS: RESP 20; TEMP 99.1; O2SAT 98
[2024-04-27 14:31] VITALS: BP 118/64; PULSE 91
--- NOTE | 2024-04-27 14:42 | Discharge Summary ---
Date of Service April 27, 2024 Admission HPI Per Admitting Provider Pleasant 39-year-old female presenting [facility]. Yesterday she started to develop some pharyngitis/sore throat. Earlier in the week she turned 19. Yesterday evening she went out with her boyfriend and had her first alcoholic drink however it was a dirty surely. They returned to their place of residence around 1:45 in the morning. Due to her sore throat and feeling like she had a low-grade fever she did take a dose of NyQuil. Later in the morning she got up to use the restroom without incident. Then around 5 AM she woke up with her boyfriend to use the restroom again and they were on the way to the restroom walking together when she told her boyfriend that she felt like she may pass out. At which point she did collapse to the floor and was partially lowered there by her boyfriend. She did not sustain injury. Her boyfriend provided the following history: Patient was unconscious for approximately 10 to 15 seconds at which time she woke up she knew where she was she was not confused she had no specific complaints. She was conscious for about a minute or 2 then became lightheaded again and said she felt like she is on a pass out and proceeded to do so for the same amount of time approximately. At which time she had a couple twitches of her upper extremities. But no generalized seizure activity. When she woke up the second time she was alert and oriented x 3. Her boyfriend helped slide her back against the wall to lean her back against the wall at which time she syncopized a third time for approximately 10 to 15 seconds again. Again woke up at which time he went and grabbed ID and they presented to the ER for further evaluation and treatment. Course in the emergency department: In the emergency department the patient had a nonacute EKG. She had laboratory studies which were unremarkable with exception of a leukocytosis of 15. Monospot negative TSH normal. COVID test negative. Bio fire panel negative. While in emergency department she needed to use the restroom. She was set up with an aide got lightheaded syncopized in the bed which was associated with an approximately 4.5-second sinus pause. Now course in emergency department she received some normal saline. Consultation obtained with cardiology Dr. Middleton who will be seeing the patient momentarily. And the hospitalist is admitting. Upon accepting admission we immediately asked the patient's nurse to place transcutaneous pacemaker pads in the patient. We are doing a stat echocardiogram at the bedside at the time of this dictation. We will do serial troponins. Admission Exam Per Admitting Provider In General: In general pleasant 19-year-old female is alert and oriented x 3 at the time my exam she is accompanied by her boyfriend at the time of my examination and she granted verbal permission to be in the room during my interview and examination. HEENT: Normocephalic atraumatic pupils are equal round and reactive to light bilaterally. No scleral icterus no conjunctival injection external auditory canals are patent septum is in the midline nose is without discharge oral mucosa is pink and moist. Her oral oropharynx is mildly erythematous. No tonsillar exudates. NECK: Supple no rigidity no lymphadenopathy no thyromegaly no carotid bruits no JVD no masses. HEART: Regular rate and rhythm I do not appreciate any ectopy or rub. No murmur. LUNGS: Clear to auscultation bilaterally and anteriorly with no evidence of adventitious sounds/wheezes rales or rhonchi. ABDOMEN: Soft nontender, no rebound, no peritoneal signs, positive bowel sounds, no appreciable organomegaly. EXTREMITIES: Intact, no peripheral cyanosis, clubbing or edema. Strength is 5 out of 5 in extremities x4. NEUROLOGICAL: Cranial nerves II through XII are grossly intact with no focal deficit elicited upon examination. No tremor. Principal Diagnosis Vasovagal Syncope Discharge Exam Constitutional WD/WN, vitals as above Respiratory normal respiratory effort, lungs clear to auscultation Cardiovascular RRR, no murmur, no edema Gastrointestinal (Abdomen) normal bowel sounds, soft, nontender, no hepatosplenomegaly Neurologic PERRL, EOMI, accommodation nl, no face palsy, no dysarthria Psychiatric A+Ox3, euthymic affect Discharge Data Allergies Allergy/AdvReac Type Severity Reaction Status Date / Time Penicillins Allergy Hives Verified 04/26/24 08:21 walnut Allergy Hives Verified 04/26/24 08:21 Consultations 04/26/24 10:01 Consult Cardiology Stat 04/26/24 10:08 ED Decision to Admit Stat 04/26/24 11:55 Consult Chief Analytics Officer Routine Hospital Course (1) Syncope and collapse: (2) Sinus pause: (3) Migraine: (4) Anxiety: Controlled. Plan -- Syncopal episodes with sinus pause No repeat events overnight. No palpitation, CP. Patient ambulating to and from bathroom in room -TSH within normal limit, Lyme disease negative, mono screen negative, group A strep negative 04/26/2024 -Beta-hCG negative -UDS negative for everything - EKG 04/26/2024, 9:23 AM: Normal sinus rhythm, normal axis, incomplete RBBB, no ST-T wave changes appreciated, QTc 433 There are some T wave inversions in lead II which is likely lead misplacement. Read by Dr. Duarte. - Follow up with Dr. Middleton in outpatient cardiology upon discharge --Leukocytosis Patient had one episode of fever overnight-given tylenol which resolved fever. No new episodes of syncope since the ED. Patient is improving with IV hydration. Consider dehydration in the context of viral pharyngitis. Consider medication effects dextromethorphan, tricyclic antidepressant. -Likely reactive -Chest x-ray does not show any lung infiltrate -UA showing trace leukocyte esterase Total Time Total Time Spent Total Time Spent (In Minutes): per attending physician's attestation Discharge Plan Discharge Items Patient Disposition: Home - Self-Care Reason For Visit: CARDIOGENIC SYNCOPE Discharge Diagnosis: Vasovagal syncope Condition on Discharge: Good Activity: Per Instructions section Non-emergency contact: Primary Care Provider Call non-emergency contact if: you have any medication questions and your symptoms worsen Follow-up/Referrals: Jair Middleton MD [Physician] - (The cardiology office will contact you to set up an appointment) [facility] [Primary Care Provider] - Shabnam Angulo DO [Resident] - 04/30/24 12:45 pm Diet: Regular Addtl Attending Provider Instructions: You were admitted with for syncopal episodes. Cardiology feels that these episodes are likely vasovagal in nature. We believe that your viral illness is making these episodes more frequent. If you start to feel prodromal symptoms like lightheadedness and dizziness you should lay down to ensure that you do not hit your head. Be sure to drink plenty fluids and increase your salt intake over the next few days. You should follow up with cardiology as an outpatient. Their office should call you to make an appointment. We made you a follow up appointment with [facility] on 04/30/24 at 12:45. The office is located at [address] [place] [address] [address] [facility], [id number]. Your appointment is with Dr. Angulo, she is one of the residents there. If you need to change your appointment time please call the office at [phone]. Pending Studies at Discharge: No Stand-Alone Forms: My [facility] [employer], Work/School Release, Smoking Cessation Medications and DC Order Prescriptions: Continued amitriptyline 12.5 mg PO .EVERY COUPLE NIGHTS Rx Instructions: per pt, she started at 50 mg and has weaned down to 12.5 mg every couple of nights ibuprofen 2 tabs PO .Q6-8H PRN (Reason: Pain) Rx Instructions: OTC unknown dose Discontinued NyQuil 1 dose PO DIRECTED PRN (Reason: cold/flu) Discharge Orders: Discharge Order (Routine); Ordered 04/27/24 Ordered By: Shabnam Angulo Admission Data Admit Date/Time: 04/26/24 10:57 Attending Provider: Neema Iqbal Admit Provider: Deandre Gong Primary Care Provider: [facility] Other Providers: Jair Middleton; Deandre Gong; Ricardo Jackson Other Interventions: Discharge Summary Assessment (RN) Last Done: 04/27/24 14:29 Supervising Physician Co-Signing Physician Notes Attending Physician Supervision Note: I independently interviewed and examined the patient and verified the salomon history and physical, reviewed labs and image studies and agree with findings and care plan noted above. Syncope - bradycardia with hypotension and 4 sec sinus pause during episode -Has had presyncopal symptoms as a teenager. -no arrhythmias noted during hospital stay. -evaluated by cardio - likely vasovagal. -educated on the pathophysiologic process and to lay down during prodrome. -maintain hydration and salt intake. Febrile illness with leukocytosis - suspect partly reactive from syncopal event and partly from viral illness which started before syncope -continued supportive care. -Push PO hydration -Will have recheck labs as outpatient on to confirm improvement. Resident Activity Tracking Resident Involvement: Resident Care Provided Care Provided: Adult Hospital Medicine
--- NOTE | 2024-04-29 08:23 | Coding Query ---
CODING QUERY To promote full compliance with coding requirements relating to patient care, provider participation is requested in all cases of final inspector and tester uncertainty. Please assist us with the question(s) below: Coding Question(s): Could you please clarify the most likely cause of the patient's syncope? Sinus Pause ( x) Bradycardia ( ) Possible Tachy-César Syndrome ( ) Other, please specify ( ) Physician's Response(s): Thank you Ayaka Du Principal Diagnosis: "that condition established after study, to be chiefly responsible for occasioning the admission of the patient to the hospital for care." Co-Existing Principal Diagnosis: "when two or more diagnoses equally meet the criteria for principal diagnosis as determined by the circumstances of admission, diagnostic work up, and/or therapy provided, and the Alphabetic Index, Tabular List, or another coding guideline does not provide sequencing direction, any one of the diagnoses may be sequenced first." "When the physician has documented what appears to be a current diagnosis in the body of the record, but has not included the diagnosis in the final diagnostic statement, the physician should be asked whether the diagnosis should be added." (Source Coding [facility] 2 QTR90. p3-4) SARAH
== END 2024-04-27 14:54 | disposition home or self-care (01) | DRG 310 ==
LOC: ED 08:13 → 1E 10:57 → SUATTDRO 10:57 → INTOOBSV 10:57 → 1E 11:38